=== PATIENT | male | born 1990 | race Caucasian/White ===

== ENCOUNTER → 2016-09-27 | Outpatient (CLI) | payer OTHER | LOC: FIMAGING 17:37 | PROVIDERS: ATTEND Internal Medicine Pulmonary Disease | DX: M79.661 Pain in right lower leg (principal) ==

== ENCOUNTER → 2017-06-18 | Outpatient (CLI) | payer OTHER | LOC: BMCIMAGING 11:53 | PROVIDERS: ATTEND Family Medicine | DX: S62.636A Displaced fracture of distal phalanx of right little finger, initial encounter for closed fracture (principal) ==

== ENCOUNTER → 2017-07-05 | Outpatient (CLI) | payer OTHER | LOC: BMCIMAGING 08:33 | PROVIDERS: ATTEND Physician Assistant | DX: S62.636A Displaced fracture of distal phalanx of right little finger, initial encounter for closed fracture (principal) ==

== ENCOUNTER 2017-07-09 15:32 | Day surgery (SDC) | payer OTHER ==
[2017-07-09] MEDS ORDERED: ceFAZolin 2 GM/SWFI 2 GM/20 ML SYR IVP ONE (15:39)
[2017-07-09] MEDS ORDERED: LR 1,000 ML IV ONE (15:40)
[2017-07-09] MEDS ORDERED: BUPIVACAINE 0.5% 30 ML SDV ONE ×2 (15:45→16:59)
[2017-07-09] MEDS ORDERED: LIDOCAINE 1% 300 MG/30 ML SDV ONE (16:53)
--- NOTE | 2017-07-09 17:11 | PDHPUP ---
History & Physical Update H&P update statement: This history and physical update is based on an assessment of the patient which was completed after admission or registration (within 24 hours), but prior to the surgery/procedure. H&P update: H&P reviewed & patient examined, no change in patient's condition since H&P completed
--- NOTE | 2017-07-09 17:14 | PDGENHP ---
History and Physical History and Physical: CC: R SF injury HPI: RSF fx ~3 wks ago playing softball. Seen in clinic by Lucy. Placed in splint. He returned about 2 wks later and xray showed interval displacement of fx. 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
[2017-07-09 19:21] VITALS: BP 135/92
--- NOTE | 2017-07-10 08:02 | GOP ---
[f rep st] OPERATIVE REPORT DATE OF OPERATION: 07/09/2017 SURGEON: Kevan Ro MD ANESTHESIA: Digital block performed by ms with 1% lidocaine and 0.5% Marcaine plain. PREOPERATIVE DIAGNOSIS: Comminuted distal phalanx base intra-articular fracture with joint subluxation. POSTOPERATIVE DIAGNOSIS: Comminuted distal phalanx base intra-articular fracture with joint subluxation. PROCEDURE PERFORMED: Right small finger open treatment of comminuted distal phalanx base intra-articular fracture. INDICATIONS FOR PROCEDURE: This patient is a 26-year-old male who sustained his injury 3 weeks ago playing softball. The ball struck the digit, and he was initially seen at [facility]. X-rays were taken. He was placed in a splint. He saw our PA 4 days later, and his splint was maintained. He was instructed to return a week later with x-rays. The patient, however, returned 2 weeks later as he was on a trip out of town. He complained of continued pain in the finger. An x-ray was taken, which showed interval displacement compared to initial injury films. There was a subluxation of the joint, dorsal displacement of the large dorsal fragment, and volar subluxation of the joint with a separate volar fragment. Discussed options with the patient. The fracture currently is not in an acceptable position with subluxation of the joint. I discussed with the patient that with clinic x-rays, it appears that the fracture is either acting like a large bony mallet-type variant or it may involve the flexor tendon avulsion as well. Discussed the risks and benefits. Risks include pain, bleeding, infection, damage to surrounding structures, pin site infection, wound healing complications, nail complications, stiffness, need for further surgeries. He understood these risks and wished to proceed. ESTIMATED BLOOD LOSS: 5 cc. DESCRIPTION OF PROCEDURE: The patient was seen in preoperative holding area. He was given the opportunity to ask questions. All his questions were answered. Consent was signed. Surgical site was marked. I performed a digital block in the preop area and then transferred to the operative suite. Good care was taken to pad all bony prominences on the gurney. 2 g of Ancef were given prior to incision. Time-out was called including surgical and anesthesia teams confirming surgical site and procedure to be performed. The right upper extremity was prepped and draped in usual sterile fashion. I cut a piece of Esmarch to use as a finger tourniquet. I wrapped it around the finger and held it there with Mosquito forceps. The fracture was not very mobile. Joint could not be reduced manually. This was due to the longevity of the injury. I first tried to reduce the subluxation by using a pointed reduction clamp to grab the distal phalanx and get traction of the finger. This partially reduced it, and then pinned it with a 0.045 K-wire from the tip of the finger into the middle phalanx head and then tried to manipulate the large dorsal fragment percutaneously with a 0.028 K-wire. This fragment, however, could not be manipulated. It was not moving. I tried to manipulate it several times. However, I decided to open it dorsally. I opened it dorsally because the volar fragment appeared to be controlled by the shaft piece and it was not displacing. I made an incision over the DIP joint in the standard fashion and identified the extensor mechanism to protect the extensor mechanism. I then used a knife to carefully loosen up the malunited dorsal fragment. I was able to visualize the joint. The patient had a 3x3mm mm loss of articular cartilage in the joint. With manipulation with a dental pick, I was able to realign the fragment in acceptable position. I held it there with 0.028 K-wires through the dorsal skin into the fragment. Prior to passing it fully, I again reduced the joint with traction on the digit with a clamp and then passed the wire down the pipe into the middle phalanx head. This maintained my joint reduction, and I passed down the K-wires to the fragment to maintain reduction of the dorsal fragment. I checked the final x-rays. I was happy with the reduction. The wound was irrigated. All bleeding was controlled. It was closed with 5-0 nylon suture. Sterile dressing was applied, and the patient was placed in a volar and dorsal Alumafoam splint. He tolerated the procedure well and was taken to PACU in stable condition. POSTOPERATIVE CONDITION: Stable. POSTOPERATIVE PLAN: The patient will follow up with me next week to change splints. We will examine his finger, and he will follow radiographically. I will remove his pins roughly about the 6-week ortega if there are no pin site issues. /[id number]/MODL MTDD
== END 2017-07-09 19:33 | disposition home or self-care (01) ==
LOC: FSGY 15:32
PROVIDERS: ATTEND Orthopaedic Surgery Hand Surgery
PROC: 0PST04Z Reposition Right Finger Phalanx with Internal Fixation Device, Open Approach (ICD-10-PCS; principal; 2017-07-09 16:45)
DX: S62.636 Displaced fracture of distal phalanx of right little finger (principal); Y93.64 Activity, baseball; Z86.711 Personal history of pulmonary embolism; Z86.718 Personal history of other venous thrombosis and embolism
CPT/HCPCS: C1713; J0690

== ENCOUNTER → 2017-07-31 | Outpatient (CLI) | payer OTHER | LOC: BMCIMAGING 08:24 | PROVIDERS: ATTEND Orthopaedic Surgery Hand Surgery | DX: S62.666D Nondisplaced fracture of distal phalanx of right little finger, subsequent encounter for fracture with routine healing (principal) ==

== ENCOUNTER → 2017-08-14 | Outpatient (CLI) | payer OTHER | LOC: BMCIMAGING 09:43 | PROVIDERS: ATTEND Orthopaedic Surgery Hand Surgery | DX: S62.666D Nondisplaced fracture of distal phalanx of right little finger, subsequent encounter for fracture with routine healing (principal) ==